=== PATIENT | female | born 1970 | race Caucasian/White ===

== ENCOUNTER → 2025-06-08 | Outpatient (CLI) | payer OTHER, SELFPAY ==
[2025-06-08 12:37] LABS: Hematocrit 34.9 % (37-47); Hemoglobin 10.2 g/dL (12.0-15.0); Immature Granulocytes Count 0.020 X10^3/uL (0.0-0.0); Mean Corp Hgb Conc 29.2 g/dL (32-36); Mean Corpuscular Volume 72.4 fL (81-99); Mean Platelet Vol. 10.4 fl (6.2-12.0); NRBC Flagged by Analyzer 0 % (0-5); Platelet Count 333 K/mm3 (150-450); RBC Distribution Width CV 17.5 % (11.6-14.6); RBC Distribution Width SD 45.5 fl (35.1-43.9); Red Blood Count 4.82 M/mm3 (4.2-5.4); White Blood Count 5.6 K/mm3 (4.4-11.0)
[2025-06-08 13:17] LABS: PTHIN 81 pg/mL (11-61)
[2025-06-08 13:19] LABS: Microalbumin,Random Urine < 12.0 mg/L (<20 mg/L)
[2025-06-08 13:28] LABS: FOLATES,SERUM (FOLIC ACID) 7.55 ng/mL (4.60-34.80)
[2025-06-08 13:41] LABS: AST(SGOT) 24 U/L (<=31); Alanine Aminotransfer ALT/SGPT 17 U/L (<=34); Albumin, Serum 4.2 g/dL (3.5-5.0); Alkaline Phosphatase 78 U/L (35-104); Anion Gap 9 (5-15); BUN 14 mg/dL (4-19); BUN/Creat Ratio 24.4 RATIO (10-20); Calcium 10.5 mg/dL (7.6-11.0); Calcium,Total 10.5 mg/dL (7.6-11.0); Carbon Dioxide 24.4 mmol/L (21.0-32.0); Chloride 106 mmol/L (98-108); Cholesterol 186 mg/dL (<=200); Ferritin 7 ng/mL (22-378); Globulin 2.6 g/dL (2.2-4.2); Glucose 78 mg/dL (70-99); Low Density Lipoprotein Calc. 78 mg/dL; Potassium 4.7 mmol/L (3.3-5.1); Triglycerides 148 mg/dL; Very Low Density Lipoprotein 30 mg/dL (5-40); Vitamin B12 474 pg/mL (180-914); Vitamin D,25 Hydroxy 37.8 ng/mL (30-100); cholesterol:hdl ratio screen 2.22
[2025-06-08 14:08] LABS: Iron 13 ug/dL (50-170); Iron Binding Capacity,Total 425 ug/dL (250-450); Iron Binding Capacity,Unsat 412 ug/dL (228-428)
[2025-06-12 19:07] LABS: Vitamin B1, Thiamine 101.2 nmol/L (66.5-200.0)
== END | disposition home or self-care (01) ==
LOC: VSLAB 08:57
PROVIDERS: Referring Provider Family Medicine; Visit Provider Family Medicine
DX: I10 Essential (primary) hypertension (principal); E55.9 Vitamin D deficiency, unspecified; E61.1 Iron deficiency; F32.9 Major depressive disorder, single episode, unspecified; Z98.84 Bariatric surgery status
CPT/HCPCS: 36415; 80053; 80061; 82043; 82306; 82310; 82607; 82728; 82746; 83036; 83540; 83550; 83970; 84425; 84443; 85025

== ENCOUNTER → 2025-06-12 | Outpatient (CLI) | payer OTHER, SELFPAY ==
[2025-06-12 10:45] LABS: Ionized Calcium Order ORDER TUBE
== END | disposition home or self-care (01) ==
LOC: MTLAB 09:42
PROVIDERS: PCP Family Medicine; Referring Provider Family Medicine; Visit Provider Family Medicine
DX: I10 Essential (primary) hypertension (principal); E55.9 Vitamin D deficiency, unspecified; E61.1 Iron deficiency; F32.9 Major depressive disorder, single episode, unspecified; Z98.84 Bariatric surgery status
CPT/HCPCS: 82330

== ENCOUNTER → 2025-07-05 | Outpatient (CLI) | payer OTHER, SELFPAY ==
[2025-07-05 12:38] LABS: Hematocrit 31.6 % (37-47); Hemoglobin 9.4 g/dL (12.0-15.0); Immature Granulocytes Count 0.020 X10^3/uL (0.0-0.0); Mean Corp Hgb Conc 29.7 g/dL (32-36); Mean Corpuscular Volume 70.7 fL (81-99); Mean Platelet Vol. 10.2 fl (6.2-12.0); NRBC Flagged by Analyzer 0 % (0-5); Platelet Count 326 K/mm3 (150-450); RBC Distribution Width CV 16.7 % (11.6-14.6); RBC Distribution Width SD 42.5 fl (35.1-43.9); Red Blood Count 4.47 M/mm3 (4.2-5.4); White Blood Count 6.7 K/mm3 (4.4-11.0)
== END | disposition home or self-care (01) ==
LOC: MTLAB 11:25
PROVIDERS: PCP Family Medicine; Referring Provider Family Medicine; Visit Provider Family Medicine
DX: E61.1 Iron deficiency (principal)
CPT/HCPCS: 36415; 85025

== ENCOUNTER → 2025-08-02 | Outpatient (CLI) | payer OTHER, SELFPAY ==
--- OUTSIDE RECORDS SUMMARY | 2025-08-02 12:29 | XMS RPT_ITS | CCD ---
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 [address] [place], [address] Globulin (S) [Mass/Vol] 2.6 g/dL Normal 2.2-4.2 [facility] Comment on above: Performed By: #### L 3100.3400, L3400.1750, L509.4015, L3100.0539 #### [facility] [address] [place], [address] Glucose [Mass/Vol] 78 mg/dL Normal 70-99 [facility] Comment on above: Performed By: #### L 3100.3400, L3400.1750, L509.4015, L3100.0539 #### [facility] [address] [place], [address] Potassium [Moles/Vol] 4.7 mmol/L Normal 3.3-5.1 [facility] Comment on above: Performed By: #### L 3100.3400, L3400.1750, L509.4015, L3100.0539 #### [facility] [address] [place], [address] Sodium [Moles/Vol] 140 mmol/L Normal 133-145 [facility] Comment on above: Performed By: #### L 3100.3400, L3400.1750, L509.4015, L3100.0539 #### [facility] [address] [place], [address] T PROT 6.8 g/dL Normal 5.9-8.4 [facility] Comment on above: Performed By: #### L 3100.3400, L3400.1750, L509.4015, L3100.0539 #### [facility] [address] [place], [address] Urea nitrogen [Mass/Vol] 14 mg/dL Normal 4-19 [facility] Comment on above: Performed By: #### L 3100.3400, L3400.1750, L509.4015, L3100.0539 #### [facility] [address] [place], [address] Ferritinon 06-08-2025 Ferritin [Mass/Vol] 7 ng/mL Low 22-378 [facility] Comment on above: Performed By: #### L 3100.3400, L3400.1750, L509.4015, L3100.0539 #### [facility] [address] [place], [address] Folates,Serum (Folic Acid)on 06-08-2025 FOLATES,SERUM 7.55 ng/mL Normal 4.60-34.80 [facility] Comment on above: Order Comment: N Performed By: #### L 3100.3400, L3400.1750, L509.4015, L3100.0539 #### [facility] [address] [place], [address] Hemoglobin A1con 06-08-2025 HbA1c (Bld) [Mass fraction] 5.3 % Normal <=5.6 [facility] Comment on above: Result Comment: Norm al < 5.7 % Prediabetic 5.7 - 6.4 % Diabetic >or= 6.5 % Please note range changes. Performed By: #### L 3300.8000, L501.9520, L501.0895, L500.4100, L503.0106, L501.9985, L503.6550, L500.4050, L502.0500, L506.0200, L509.1000, L506.1001, L503.6030, L100.0100 #### [facility] [address] [place], [address] Iron+Iron Binding Capacityon 06-08-2025 Iron [Mass/Vol] 13 ug/dL Low 50-170 [facility] Comment on above: Performed By: #### L 3100.3400, L3400.1750, L509.4015, L3100.0539 #### [facility] [address] [place], [address] IRON SATURATION 3.1 Low 13-59 [facility] Comment on above: Performed By: #### L 3100.3400, L3400.1750, L509.4015, L3100.0539 #### [facility] [address] [place], [address] TIBC 425 ug/dL Normal 250-450 [facility] Comment on above: Performed By: #### L 3100.3400, L3400.1750, L509.4015, L3100.0539 #### [facility] [address] [place], [address] UIBC 412 ug/dL Normal 228-428 [facility] Comment on above: Performed By: #### L 3100.3400, L3400.1750, L509.4015, L3100.0539 #### [facility] [address] [place], [address] Lipid Profileon 06-08-2025 CHOL:HDL 2.22 Normal [facility] Comment on above: Performed By: #### L 3100.3400, L3400.1750, L509.4015, L3100.0539 #### [facility] [address] [place], [address] Cholesterol [Mass/Vol] 186 mg/dL Normal <=200 [facility] Comment on above: Result Comment: Chol esterol level, Desirable <200 mg/dL Borderline high cholesterol 200-239 mg/dL High cholesterol >=240 mg/dL Recommendations of the NCEP Adult Treatment Panel for the following risk-cutoff thresholds for the [place] population. Performed By: #### L 3100.3400, L3400.1750, L509.4015, L3100.0539 #### [facility] [address] [place], [address] Cholesterol in HDL [Mass/Vol] 84 mg/dL Normal [facility] Comment on above: Result Comment: Magdalena onal Cholesterol Education Program (NCEP) guidelines: <40 mg/dL: Low HDL-cholesterol (major risk factor for CHD) >= 60 mg/dL: High HDL-cholesterol (negative risk factor for CHD) HDL-cholesterol is affected by a number of factors, e.g. smoking, exercise, hormones, sex and age. Performed By: #### L 3100.3400, L3400.1750, L509.4015, L3100.0539 #### [facility] [address] [place], [address] Cholesterol in LDL [Mass/Vol] 78 mg/dL Normal [facility] Comment on above: Result Comment: Bord fcshth=917-395 mg/dL Higher Lebx=423 mg/dL or greater Nicolas Equation 2020 for LDL-C Performed By: #### L 3100.3400, L3400.1750, L509.4015, L3100.0539 #### [facility] [address] [place], [address] Cholesterol in VLDL [Mass/Vol] 30 mg/dL Normal 5-40 [facility] Comment on above: Performed By: #### L 3100.3400, L3400.1750, L509.4015, L3100.0539 #### [facility] [address] [place], [address] Triglyceride [Mass/Vol] 148 mg/dL Normal [facility] Comment on above: Result Comment: The drugs N-Acetylcysteine and Metamizole may falsely depress this assay. Normal range: <150 mg/dL Borderline High: 150-199 mg/dL High: 200-499 mg/dL Very High: >500 mg/dL Performed By: #### L 3100.3400, L3400.1750, L509.4015, L3100.0539 #### [facility] [address] [place], [address] Microalbumin,Random Urineon 06-08-2025 MICROALBUMIN,UR < 12.0 Normal <20 mg/L [facility] Comment on above: Performed By: #### L 3300.8000, L501.9520, L501.0895, L500.4100, L503.0106, L501.9985, L503.6550, L500.4050, L502.0500, L506.0200, L509.1000, L506.1001, L503.6030, L100.0100 #### [facility] [address] [place], [address] PTHINon 06-08-2025 PTH 81 pg/mL High [facility] Comment on above: Performed By: #### L 3300.8000, L501.9520, L501.0895, L500.4100, L503.0106, L501.9985, L503.6550, L500.4050, L502.0500, L506.0200, L509.1000, L506.1001, L503.6030, L100.0100 #### [facility] [address] [place], [address] Thyroid Stim Hormone (TSH)on 06-08-2025 TSH 1.250 uIU/mL Normal 0.300-4.200 [facility] Comment on above: Performed By: #### L 3100.3400, L3400.1750, L509.4015, L3100.0539 #### [facility] [address] [place], [address] Vitamin B12on 06-08-2025 Cobalamin (Vitamin B12) [Mass/Vol] 474 pg/mL Normal 180-914 [facility] Comment on above: Performed By: #### L 3100.3400, L3400.1750, L509.4015, L3100.0539 #### [facility] [address] [place], [address] Vitamin D,25 Hydroxyon 06-08 Vitamin D 25-OH 37.8 ng/mL Normal 30-100 [facility] Comment on above: Result Comment: Milka min D Status Deficiency: <20 ng/mL (50nmol/L) Insufficiency: 20-30 ng/mL (50-75 nmol/L) Sufficiency: 30-100 ng/mL (75-250 nmol/L) Toxicity: >100 ng/mL (>250 nmol/L) Performed By: #### L 3100.3400, L3400.1750, L509.4015, L3100.0539 #### [facility] [address] [place], [place], [address] Urgent Care Visit Reporton 0 01-06-2025 Urgent Care Visit Report [facility] [address], [address] [place], [place] [address] OFFICE VISIT Date of Service: 01/06/25 MR#: [id number] Acct: [id number] Name: CAROLE GUADARRAMA Rep #: [id number] : 1970 Provider: BRIAN Jackson Age/Sex: 54/F Location: [facility] Status: Signed Intake Vital Signs 01/06/25 12:20 Height 5 ft 6 in Weight: 153 lb 9 oz BMI 24.7 BP 140/86 H Blood Pressure Location Lt brachial Position Sitting Respiration 16 Pulse 73 Pulse Source NIBP Temp 98.5 F Temp Source Oral Pulse Oximetry (%) 98 Oxygen Delivery Method room air Intake Visit Reasons: Rash Chief Complaint: rash Children Teacher Required: No Is patient in pain?: Yes Allergies meperidine (From Demerol) Allergy (Mild, Verified 01/06/25 12:20) Hives Medications ???Medication ???Instructions ???Recorded ???Confirmed ???Type amlodipine 5 mg tablet 5 mg PO QDAY 01/06/25 01/06/25 His tory clotrimazole-betamethasone 1 1 applic topical Q12H 2 weeks #45 01/06/25 01/06/25 Rx %-0.05 % topical cream grams prednisone 10 mg tablet 10 mg PO DIRECTED 12 days #30 0 01/06/25 01/06/25 Rx tabs sertraline 100 mg tablet 100 mg PO QDAY 01/06/25 01/06/25 H istory sulfamethoxazole 800 1 tab PO Q12H 7 days #14 tabs 01/2501/06/25 Rx mg-trimethoprim 160 mg tablet (Bactrim DS) trazodone 50 mg tablet 50 mg PO QHS 01/06/25 01/06/25 His tory Is last menstrual period known: No Post menopausal: Yes Patient : No Have you fallen in the past year?: No Nurse's Note: rash to bilateral hands LT>RT, right arm, left breast. denies drainage, fever, itching. +burning sensation which is worsening. x 10 days. has tried NUMEROUS otc meds without relief. HPI HPI Chief Complaint: rash Details: CAROLE GUADARRAMA, is a 54 F who presents to the office today for rash to the hands bilaterally worse on the left than the right. Patient states that she was gardening and then the next day started having a rash. She has tried multiple bbmq-oml-pjgevxb medications including antifungal creams as well as ointments with no relief. She states that it does itch somewhat however not incessantly. No numbness, tingling or loss of range of motion to the hand or fingers. No other associated symptoms or alleviating/aggravating factors. ROS Const Constitutional: No other (6 system ROS completed with pertinent findings in the HPI otherwise normal.) Exam Const General: cooperative and healthy appearing Resp Effort Inspection: normal respiratory effort Auscultation: Bilateral: Clear to Auscultation Cardio Rate: regular rate Skin Other: Erythematous circular lesions to the left and right hands worse on the left. Neuro General: patient alert Psych Appearance: grossly normal Mental Status: mental status grossly normal Coding Level of Care Code Off vis,new,level 3 Diagnoses Rash R21 Staph skin infection L08.9; B95.8 Assessment and Plan Assessment and Plan (1) Rash: (2) Staph skin infection: Status: Acute Medications: New sulfamethoxazole-trimethoprim 800-160 mg (Bactrim DS) 1 TAB PO Q12H 14 tabs 0RF 7 days prednisone Take 4 tabs once daily days 1-3 3 tabs once daily days 4-6 2 tabs once daily days 7-9 and 1 tab once daily days 10-12. 10 mg PO DIRECTED 30 tabs 0RF 12 days L25.9 - Unspecified contact dermatitis, unspecified cause clotrimazole-betamethasone 1-0.05 % 1 applic topical Q12H 45 grams 0RF 2 weeks Plan Bactrim, prednisone and Lotrisone as prescribed today. Encouraged to get plenty of rest, drink lots of clear liquids, and use Tylenol or Ibuprofen (unless contraindicated) for fever and comfort. Patient also educated on other symptomatic management techniques. To be seen in 7-10 days by dermatology if no improvement; sooner if worsening of symptoms. Patient advised of potential red flags and when appropriate to report to the ED. Patient verbalized understanding and agreement with all the above. Clinical Quality Measures Falls Risk Screening/Assistive Devices Have you fallen in the past year?: No 01/06/25 7089 Date Brodie Cooper Signature: Date (if applicable) CC: Normal [facility] Mumps Antibody,IgGon 025 MUMPS Ab, IgG 11.2 AU/mL Normal Immune >10.9 [facility] Comment on above: Result Comment: Nega tive <9.0 Equivocal 9.0 - 10.9 Positive >10.9 A positive result generally indicates past exposure to Mumps virus or previous vaccination. Performed By: #### L 3100.3400, L3400.1750, L509.4015, L3100.0539 #### [facility] [address] [place], [place], [address] [facility] EMP Rubeola Titeron 08-03 RUBEOLA Ab, IgG 283.0 AU/mL Normal Immune >16.4 [facility] Comment on above: Result Comment: Nega tive <13.5 Equivocal 13.5 - 16.4 Positive >16.4 Presence of antibodies to Rubeola is presumptive evidence of immunity except when acute infection is suspected. Performed at: [address] [id number] [facility] Coordinator: Alexandro Mary PhD, Phone: [phone] Performed By: #### L 3100.3400, L3400.1750, L509.4015, L3100.0539 #### [facility] [address] [place], [address] Hepatitis B Surf AB - EMPon 08-16-2024 HEP B Surf Ab Non-Reactive Normal [facility] Comment on above: Result Comment: Non Reactive: Inconsistent with immunity less than <10 mIU/mL Reactive: Consistent with immunity greater than or equal to 10 mIU/mL Performed By: #### L 3100.3400, L3400.1750, L509.4015, L3100.0539 #### [facility] [address] [place], [place], [address] Rubella IgG [facility] EMPLOYEEon 0 08-16-2024 Rubella IgG Reactive Normal Nonreactive [facility] Comment on above: Result Comment: Anti body Results Interpretation of Immune Status Non Reactive Presumed Non-Immune Equivocal Equivocal Reactive Presumed Immune Performed By: #### L 3100.3400, L3400.1750, L509.4015, L3100.0539 #### [facility] [address] [place], [address] CBC AND DIFFERENTIALon 05-02 % AUTOMATED IMMATURE GRAN Canceled Normal [facility] Comment on above: Order Comment: TEST CBC AND DIFFERENTIAL WAS CANCELLED, 05/01/2023 23:54 NO SPECIMEN RECEIVED IN LAB. Result Comment: Velvet ture Granulocyte Count (IG) includes promyelocytes, myelocytes and metamyelocytes but does not include bands. Percent differential counts (%) should be interpreted in the context of the absolute cell counts (cells/L). Performed By: #### C BCDF #### [address] [address] % BASOPHIL Canceled [facility] Comment on above: Order Comment: TEST CBC AND DIFFERENTIAL WAS CANCELLED, 05/01/2023 23:54 NO SPECIMEN RECEIVED IN LAB. Performed By: #### C BCDF #### [address] [address] % EOSINOPHIL Canceled [facility] Comment on above: Order Comment: TEST CBC AND DIFFERENTIAL WAS CANCELLED, 05/01/2023 23:54 NO SPECIMEN RECEIVED IN LAB. Performed By: #### C BCDF #### [address] [address] % LYMPHOCYTE Canceled [facility] Comment on above: Order Comment: TEST CBC AND DIFFERENTIAL WAS CANCELLED, 05/01/2023 23:54 NO SPECIMEN RECEIVED IN LAB. Performed By: #### C BCDF #### [address] [address] % MONOCYTE Canc[facility] Comment on above: Order Comment: TEST CBC AND DIFFERENTIAL WAS CANCELLED, 05/01/2023 23:54 NO SPECIMEN RECEIVED IN LAB. Performed By: #### C BCDF #### [address] [address] % NEUTROPHIL Canceled [facility] Comment on above: Order Comment: TEST CBC AND DIFFERENTIAL WAS CANCELLED, 05/01/2023 23:54 NO SPECIMEN RECEIVED IN LAB. Performed By: #### C BCDF #### [place] [address] BASOPHIL Canceled [facility] Comment on above: Order Comment: TEST CBC AND DIFFERENTIAL WAS CANCELLED, 05/01/2023 23:54 NO SPECIMEN RECEIVED IN LAB. Performed By: #### C BCDF #### [place] [address] DIFFERENTIAL Canceled [facility] Comment on above: Order Comment: TEST CBC AND DIFFERENTIAL WAS CANCELLED, 05/01/2023 23:54 NO SPECIMEN RECEIVED IN LAB. Performed By: #### C BCDF #### [place] [address] EOSINOPHIL Canceled [facility] Comment on above: Order Comment: TEST CBC AND DIFFERENTIAL WAS CANCELLED, 05/01/2023 23:54 NO SPECIMEN RECEIVED IN LAB. Performed By: #### C BCDF #### [place] [address] HCT Canceled [facility] Comment on above: Order Comment: TEST CBC AND DIFFERENTIAL WAS CANCELLED, 05/01/2023 23:54 NO SPECIMEN RECEIVED IN LAB. Performed By: #### C BCDF #### [place] [address] HGB Canceled [facility] Comment on above: Order Comment: TEST CBC AND DIFFERENTIAL WAS CANCELLED, 05/01/2023 23:54 NO SPECIMEN RECEIVED IN LAB. Performed By: #### C BCDF #### [place] [address] LYMPHOCYTE Canceled [facility] Comment on above: Order Comment: TEST CBC AND DIFFERENTIAL WAS CANCELLED, 05/01/2023 23:54 NO SPECIMEN RECEIVED IN LAB. Performed By: #### C BCDF #### [place] [address] MCHC Canceled [facility] Comment on above: Order Comment: TEST CBC AND DIFFERENTIAL WAS CANCELLED, 05/01/2023 23:54 NO SPECIMEN RECEIVED IN LAB. Performed By: #### C BCDF #### [address] [address] MCV Canceled [facility] Comment on above: Order Comment: TEST CBC AND DIFFERENTIAL WAS CANCELLED, 05/01/2023 23:54 NO SPECIMEN RECEIVED IN LAB. Performed By: #### C BCDF #### [address] [address] MONOCYTE Canceled [facility] Comment on above: Order Comment: TEST CBC AND DIFFERENTIAL WAS CANCELLED, 05/01/2023 23:54 NO SPECIMEN RECEIVED IN LAB. Performed By: #### C BCDF #### [place] [id number] NEUTROPHIL Canceled [facility] Comment on above: Order Comment: TEST CBC AND DIFFERENTIAL WAS CANCELLED, 05/01/2023 23:54 NO SPECIMEN RECEIVED IN LAB. Result Comment: Perc ent differential counts (%) should be interpreted in the context of the absolute cell counts (cells/L). Performed By: #### C BCDF #### [place] [id number] PLT Canceled [facility] Comment on above: Order Comment: TEST CBC AND DIFFERENTIAL WAS CANCELLED, 05/01/2023 23:54 NO SPECIMEN RECEIVED IN LAB. Performed By: #### C BCDF #### [place] [id number] RBC Canceled [facility] Comment on above: Order Comment: TEST CBC AND DIFFERENTIAL WAS CANCELLED, 05/01/2023 23:54 NO SPECIMEN RECEIVED IN LAB. Performed By: #### C BCDF #### [place] [address] RDW-CV Canceled [facility] Comment on above: Order Comment: TEST CBC AND DIFFERENTIAL WAS CANCELLED, 05/01/2023 23:54 NO SPECIMEN RECEIVED IN LAB. Performed By: #### C BCDF #### [place] [id number] WBC Canceled [facility] Comment on above: Order Comment: TEST CBC AND DIFFERENTIAL WAS CANCELLED, 05/01/2023 23:54 NO SPECIMEN RECEIVED IN LAB. Performed By: #### C BCDF #### [place] [address] FERRITINon 05-02-2023 FERRITIN Canceled [facility] Comment on above: Order Comment: TEST FERRITIN WAS CANCELLED, 05/01/2023 23:54 NO SPECIMEN RECEIVED IN LAB. Performed By: #### F ERRI #### [place] [address] IRON + TIBCon 05-02-2023 % SATURATION Canceled [facility] Comment on above: Order Comment: TEST IRON + TIBC WAS CANCELLED, 05/01/2023 23:54 NO SPECIMEN RECEIVED IN LAB. Performed By: #### I RONT #### [place] [address] IRON Canceled [facility] Comment on above: Order Comment: TEST IRON + TIBC WAS CANCELLED, 05/01/2023 23:54 NO SPECIMEN RECEIVED IN LAB. Performed By: #### I RONT #### [place] [address] TIBC Canceled [facility] Comment on above: Order Comment: TEST IRON + TIBC WAS CANCELLED, 05/01/2023 23:54 NO SPECIMEN RECEIVED IN LAB. Performed By: #### I RONT #### [place] [address] CBC AND DIFFERENTIALon 05-01 Lab Specimen Source [facility] Comment on above: Order Comment: TEST CBC AND DIFFERENTIAL WAS CANCELLED, 05/01/2023 23:54 NO SPECIMEN RECEIVED IN LAB. Performed By: #### C BCDF #### [place] [address] Order Comment: TEST FERRITIN WAS CANCELLED, 05/01/2023 23:54 NO SPECIMEN RECEIVED IN LAB. Performed By: #### F ERRI #### [place] [address] Order Comment: TEST IRON + TIBC WAS CANCELLED, 05/01/2023 23:54 NO SPECIMEN RECEIVED IN LAB. Performed By: #### I STANISLAW #### [place] [address] [place] [address] FOOT COMPLETE, MIN 3 VIEWSon 11-28-2022 FOOT COMPLETE, MIN 3 VIEWS Patient Name: CAROLE GUADARRAMA STUDY: FOOT; COMPLETE, MIN 3 VIEWS INDICATION: plantar fascial fibromatosis. COMPARISON: None ACCESSION NUMBER(S): [id number] ORDERING CLINICIAN: WIL MCNAIR FINDINGS: Moderate midfoot arthrosis with pes planus. Large plantar calcaneal spur. No evidence of left foot fracture. IMPRESSION: Moderate midfoot arthrosis with pes planus. Large plantar calcaneal spur. Electronically signed by: SAMUEL CERON MD [facility] [place] [facility] [place]o [place] 09-03-2022 Noninvasive colorectal cancer DNA and occult blood screening Theo (Stl) [Interp] Negative Negative [facility] Work Phone: Comment on above: [employer] (CLIA #:[id number])[address] [place] [address] [facility] Medical DirectorNEGATIVE TEST RESULT. A negative Cologuard result indicates a low likelihood that a colorectal cancer (CRC) or advanced adenoma (adenomatous polyps with more advanced pre-malignant features) is present. The chance that a person with a negative Cologuard test has a colorectal cancer is less than 1 in 1500 (negative predictive value >99.9%) or has an advanced adenoma is less than 5.3% (negative predictive value 94.7%). These data are based on a prospective cross-sectional study of 10,000 individuals at average risk for colorectal cancer who were screened with both Cologuard and colonoscopy. (Gertrudis Butcher al, N Engl J Med 2014;370(14):6772-2047) The normal value (reference range) for this assay is negative.COLOGUARD RE-SCREENING RECOMMENDATION: Periodic colorectal cancer screening is an important part of preventive healthcare for asymptomatic individuals at average risk for colorectal cancer. Following a negative Cologuard result, the [place] [employer] and U.S. Multi-Society Task Force screening guidelines recommend a Cologuard re-screening interval of 3 years. References: [place] [employer] Guideline for Colorectal Cancer Screening: https://www.cancer.org/cancer/pbecq-mwmojd-woslft/detection-diagnosi s-staging/acs-recommendations.html.; Devang KING, Cheng KATZ, Patria ToneyK, Colorectal Cancer Screening: Recommendations for Physicians and Patients from the U.S. Multi-Society Task Force on Colorectal Cancer Screening , Am J Gastroenterology 2017; 112:4245-0141.TEST DESCRIPTION: Composite algorithmic analysis of stool DNA-biomarkers with hemoglobin immunoassay. Quantitative values of individual biomarkers are not reportable and are not associated with individual biomarker result reference ranges. Cologuard is intended for colorectal cancer screening of adults of either sex, 45 years or older, who are at average-risk for colorectal cancer (CRC). Cologuard has been approved for use by the U.S. FDA. The performance of Cologuard was established in a cross sectional study of average-risk adults aged 50-84. Cologuard performance in patients ages 45 to 49 years was estimated by sub-group analysis of near-age groups. Colonoscopies performed for a positive result may find as the most clinically significant lesion: colorectal cancer [4.0%], advanced adenoma (including sessile serrated polyps greater than or equal to 1cm diameter) [20%] or non- advanced adenoma [31%]; or no colorectal neoplasia [45%]. These estimates are derived from a prospective cross-sectional screening study of 10,000 individuals at average risk for colorectal cancer who were screened with both Cologuard and colonoscopy. (Gertrudis Tracy et al, N Engl J Med 2014;370(14):3388-1770.) Cologuard may produce a false negative or false positive result (no colorectal cancer or precancerous polyp present at colonoscopy follow up). A negative Cologuard test result does not guarantee the absence of CRC or advanced adenoma (pre-cancer). The current Cologuard screening interval is every 3 years. ([place] [employer] and U.S. Multi-Society Task Force). Cologuard performance data in a 10,000 patient pivotal study using colonoscopy as the reference method can be accessed at the following location: www.[employer]/results. Additional description of the Cologuard test process, warnings and precautions can be found at www.cologuard.com. Tobacco Screening.on 023 Fall risk assessment a) No falls within the last year [facility] Work Phone: Tobacco use status [facility] b) No [facility] Work Phone: Tobacco Screening. Adult [facility] Work Phone: CT Abdomen and Pelvis with I V Contraston 07-30-2022 CT Abdomen and Pelvis W contrast IV Normal [facility] Work Phone: COMPREHENSIVE PANELon 2021 Albumin [Mass/Vol] 4.0 g/dL Normal 3.4 - 5.0 [facility] Comment on above: Performed By: #### C MP #### [address] [address] ALP [Catalytic activity/Vol] 72 U/L Normal 33 - 110 [facility] Comment on above: Performed By: #### C MP #### [address] [address] ALT [Catalytic activity/Vol] 11 U/L Normal 7 - 45 [facility] Comment on above: Result Comment: Keoyna ents treated with Sulfasalazine may generate falsely decreased results for ALT. Performed By: #### C MP #### [address] [address] Anion gap [Moles/Vol] 10 mmol/L Normal 10 - 20 [facility] Comment on above: Performed By: #### C MP #### [address] [address] AST [Catalytic activity/Vol] 15 U/L Normal 9 - 39 [facility] Comment on above: Performed By: #### C MP #### [address] [address] Bilirubin [Mass/Vol] 0.3 mg/dL Normal 0.0 - 1.2 [facility] Comment on above: Performed By: #### C MP #### [address] [address] Calcium [Mass/Vol] 10.5 mg/dL High 8.6 - 10.3 [facility] Comment on above: Performed By: #### C MP #### [address] [address] Chloride [Moles/Vol] 108 mmol/L High 98 - 107 [facility] Comment on above: Performed By: #### C MP #### [address] [address] Creatinine [Mass/Vol] 0.70 mg/dL Normal 0.50 - 1.05 [facility] Comment on above: Performed By: #### C MP #### [address] [address] eGFR FEMALE >90 Normal >90 [facility] Comment on above: Result Comment: CALC ULATIONS OF ESTIMATED GFR ARE PERFORMED USING THE 2020 CKD-EPI STUDY REFIT EQUATION WITHOUT THE RACE VARIABLE FOR THE IDMS-TRACEABLE CREATININE METHODS. https://jasn.asnjournals.org/content/early/ASN.5765833778 Performed By: #### C MP #### [address] [address] Glucose [Mass/Vol] 105 mg/dL High 74 - 99 [facility] Comment on above: Performed By: #### C MP #### [address] [address] HCO3 (Bld) [Moles/Vol] 28 mmol/L Normal 21 - 32 [facility] Comment on above: Performed By: #### C MP #### [address] [address] Potassium [Moles/Vol] 4.5 mmol/L Normal 3.5 - 5.3 [facility] Comment on above: Performed By: #### C MP #### [address] [address] Protein [Mass/Vol] 6.7 g/dL Normal 6.4 - 8.2 [facility] Comment on above: Performed By: #### C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 TECHNIQUE: Mammography: CC and MLO 2D digital mammograms and digital breast tomosynthesis images were obtained of the left breast. 3-D volume images were reconstructed in 2 views at an independent workstation as 1 mm slices through the breasts in both the CC and MLO projections. Ultrasound: Multiple grayscale ultrasonographic images were obtained through the left breast in the region of mammographic abnormality. FINDINGS: Mammography: There are areas of scattered fibroglandular tissue. There is a persistent focal asymmetry identified inches the 11 o'clock position of the left breast. A biopsy clip is seen in association with this asymmetry. A small focus of architectural distortion is seen in the anterior aspect of this asymmetry. No additional mass or focal asymmetry is identified. No suspicious microcalcifications or foci of architectural distortion are seen. Further evaluation with ultrasound was obtained. This study was interpreted with CAD. Ultrasound: No discrete mass or ultrasonographic abnormality is seen in the region of mammographic abnormality. IMPRESSION: Mammographic asymmetry without sonographic correlate, as described above. Recommendation is for follow-up examination in 6 months with bilateral diagnostic mammograms. BI-RADS CATEGORY: Category: 3 - Probably Benign; Short Interval Follow-up. Exam Date/Time: 06/30/2018 08:57 EST Report Recommendation: Short Interval Follow-up. Recall Interval: 6 Months. Breast Density: Scattered Fibroglandular Density. Negative or benign mammogram and ultrasound should not preclude further evaluation of a suspicious clinical abnormality. FINAL REPORT Dictated: 06/30/2018 11:00 am Gilmar Alcaraz MD Signed (Electronic Signature): 06/30/2018 11:00 am Signed by: Gilmar Alcaraz MD Technologist: JIGAR Assessment: BI-RADS Category 3-Probably benign - short interval follow-up Recommendation: Follow-up at short interval Normal [facility] US PELVIS NON-OB COMPLETEon 03-25-2017 US PELVIS NON-OB COMPLETE Performed at [facility] APPROVED BY: Terry Molina MD EXAM TITLE: PELVIC ULTRASOUND WITH TRANSABDOMINAL AND TRANSVAGINAL IMAGING. DATE: 03/25/2017 09:53 COMPARISON: CT of the abdomen and pelvis dated 03/14/2009 CLINICAL INDICATION/HISTORY: The patient has menorrhagia. TECHNIQUE: Both transabdominal and transvaginal imaging of the pelvis were performed. FINDINGS: The uterus measures 7.6 x 3.3 x 5.2 cm. There is a thin echogenic endometrial stripe measuring 5 mm in thickness. No focal uterine abnormalities are identified. The right ovary measures 5.0 x 2.6 x 2.8 cm.The left ovary measures 7.0 x 3.7 x 4.7 cm.Within both ovaries there are multiple prominent anechoic structures. The largest on the right measures 3.7 x 2.0 x 2.4 cm. There also appears to be multiple small follicles on the right. There are several large cysts on the left. The largest measures 5.0 x 2.3 x 3.0 cm. Another measures 3.0 x 2.6 cm and a third measures 2.8 x 1.8 cm. No other focal ovarian abnormalities are noted. Doppler analysis demonstrates normal flow to both ovaries. There is no evidence of torsion. The right kidney measures greater than or equal to 10.1 x 6.1 x 5.1 cm.The left kidney measures greater than or equal to 10.5 x 5.1 x 4.7 cm.No hydronephrosis noted. Bladder is of normal size and configuration. There is a trace amount of free fluid which is most likely physiologic. IMPRESSION: 1. There are multiple prominent simple appearing cysts within the cortex of both ovaries. These are larger and more numerous on the left than on the right. 2. Otherwise negative pelvic ultrasound. Normal [facility] US TRANSVAGINALon 03-25-2017 US TRANSVAGINAL Performed at [facility] APPROVED BY: Terry Molina MD EXAM TITLE: PELVIC ULTRASOUND WITH TRANSABDOMINAL AND TRANSVAGINAL IMAGING. DATE: 03/25/2017 09:53 COMPARISON: CT of the abdomen and pelvis dated 03/14/2009 CLINICAL INDICATION/HISTORY: The patient has menorrhagia. TECHNIQUE: Both transabdominal and transvaginal imaging of the pelvis were performed. FINDINGS: The uterus measures 7.6 x 3.3 x 5.2 cm. There is a thin echogenic endometrial stripe measuring 5 mm in thickness. No focal uterine abnormalities are identified. The right ovary measures 5.0 x 2.6 x 2.8 cm.The left ovary measures 7.0 x 3.7 x 4.7 cm.Within both ovaries there are multiple prominent anechoic structures. The largest on the right measures 3.7 x 2.0 x 2.4 cm. There also appears to be multiple small follicles on the right. There are several large cysts on the left. The largest measures 5.0 x 2.3 x 3.0 cm. Another measures 3.0 x 2.6 cm and a third measures 2.8 x 1.8 cm. No other focal ovarian abnormalities are noted. Doppler analysis demonstrates normal flow to both ovaries. There is no evidence of torsion. The right kidney measures greater than or equal to 10.1 x 6.1 x 5.1 cm.The left kidney measures greater than or equal to 10.5 x 5.1 x 4.7 cm.No hydronephrosis noted. Bladder is of normal size and configuration. There is a trace amount of free fluid which is most likely physiologic. IMPRESSION: 1. There are multiple prominent simple appearing cysts within the cortex of both ovaries. These are larger and more numerous on the left than on the right. 2. Otherwise negative pelvic ultrasound. Normal [facility] Hemogramon 03-16-2017 Erythrocyte distribution width Auto Ratio (RBC) 12.9 % Normal 11.5-15.9 [facility] Comment on above: Performed By: #### L CBC ####[address] [address] Erythrocytes (RBC) 5.06 mil/cmm Normal 4.20-5.40 [facility] Comment on above: Performed By: #### L CBC ####[address] [address] Hematocrit (HCT) 42.5 % Normal 37.0-47.0 [facility] Comment on above: Performed By: #### L CBC ####[address] [address] Hemoglobin mass conc (Bld) 14.0 g/dL Normal 12.0-16.0 [facility] Comment on above: Performed By: #### L CBC ####[address] [address] MCH 27.7 pg Normal 27.0-31.0 [facility] Comment on above: Performed By: #### L CBC ####[facility] [place], [place] [address] MCHC mass conc (RBC) 32.9 % Normal 32.0-36.0 [facility] Comment on above: Performed By: #### L CBC ####[facility] [place], [place] [address] MCV 84.0 fL Normal 81.0-99.0 [facility] Comment on above: Performed By: #### L CBC ####[facility] [place], [place] [address] Platelet mean volume (PMV) 10.0 fL Normal 7.1-10.5 [facility] Comment on above: Performed By: #### L CBC ####[address] [address] Platelets 395 thou/cmm Normal 150-400 [facility] Comment on above: Performed By: #### L CBC ####[place] [address] WBC (Leukocytes) 8.0 thou/cmm Normal 4.8-10.8 [facility] Comment on above: Performed By: #### L CBC ####[place] [address] Pap,Cyto Gynon 03-16-2017 Pap,Cyto Radiologic Technologist Test performed at [place] [address]NAME: CAROLE GUADARRAMA [phone] REQUESTING: CRYSTAL GARCIA, MDSPECIMEN: TP CX REFLEX TO HPV ASCUS/SILRelevant History:LMP: 03/08/2017 Abnormal bleeding: YES,SPECIMEN ADEQUACYSATISFACTORY FOR EVALUATION. ENDOCERVICAL/TRANSFORMATION ZONECOMPONENTS PRESENT.GENERAL CATEGORIZATIONNEGATIVE FOR INTRAEPITHELIAL LESION OR MALIGNANCY.INTERPRETATION/RESU LTFUNGAL ORGANISMS MORPHOLOGICALLY CONSISTENT WITH NATHAN SPECIES.Electronically signed: 03/19/2017Screened by: XIOMY MARTIN CT(ASCP)Signed Out by: KULWANT A. DON, CT(ASCP)The Pap test serves as a screening tool for early detection of cervical cancer. The Pap test does not represent a final diagnostic test forcervical cancer. Furthermore, the Pap test was not designed to screenfor other malignancies (endometrial, ovarian cancer, etc....). Falsenegatives and false positives have occurred. If clinically indicated,further patient evaluation is recommended.Printed on: March 19, 2017 [address] [facility] Comment on above: Performed By: #### C YTOP ####[address] [address] Vital Signs Date Time Vital Sign Value Performing Clinician Facility 01-06-2025 12:20-0400 Body height 167.64 cm Brodierl Phan PA Work Phone: [facility] 01-06-2025 12:20-0400 Body mass index (BMI) [Ratio] 24.7 kg/m2 Brodierl Phan PA Work Phone: [facility] 01-06-2025 12:20-0400 Body temperature 98.5 [degF] Brodie Sylvester PA Work Phone: [facility] 01-06-2025 12:20-0400 Body weight 69.65 kg Brodie Sylvester PA Work Phone: [facility] 01-06-2025 12:20-0400 Diastolic blood pressure 86 mm[Hg] Brodie Sylvester PA Work Phone: [facility] 01-06-2025 12:20-0400 Heart rate 73 /min Brodie Sylvester PA Work Phone: [facility] 01-06-2025 12:20-0400 Respiratory rate 16 /min Brodie Sylvester PA Work Phone: [facility] 01-06-2025 12:20-0400 SaO2% (BldA) [Mass fraction] 98 % Brodie Sylvester PA Work Phone: [facility] 01-06-2025 12:20-0400 Systolic blood pressure 140 mm[Hg] Brodierl Phan PA Work Phone: [facility] 08-05-2022 08:22-0500 Body height 164.62 cm Melisa L Oberhauser Work Phone: [facility] Work Phone: 08-05-2022 08:22-0500 Body mass index (BMI) [Ratio] 27.79 kg/m2 Melisa L Oberhauser Work Phone: [facility] Work Phone: 08-05-2022 08:22-0500 Body surface area Derived from formula 1.82 m2 Melisa L Oberhauser Work Phone: [facility] Work Phone: 08-05-2022 08:22-0500 Body weight 75.3 kg Melisa L Oberhauser Work Phone: [facility] Work Phone: 08-05-2022 08:22-0500 Diastolic blood pressure 82 mm[Hg] Melisa L Oberhauser Work Phone: [facility] Work Phone: 08-05-2022 08:22-0500 Heart rate 77 /min Melisa L Oberhauser Work Phone: [facility] Work Phone: 08-05-2022 08:22-0500 Systolic blood pressure 145 mm[Hg] Melisa L Oberhauser Work Phone: [facility] Work Phone: 04-23-2022 12:47-0400 Body height 164.62 cm Melisa L Oberhauser Work Phone: [facility] Work Phone: 04-23-2022 12:47-0400 Body mass index (BMI) [Ratio] 27.77 kg/m2 Melisa L Oberhauser Work Phone: [facility] Work Phone: 04-23-2022 12:47-0400 Body surface area Derived from formula 1.82 m2 Melisa L Oberhauser Work Phone: [facility] Work Phone: 04-23-2022 12:47-0400 Body temperature 208.04 [degF] Melisa L Oberhauser Work Phone: [facility] Work Phone: 04-23-2022 12:47-0400 Body weight 75.25 kg Melisa L Oberhauser Work Phone: [facility] Work Phone: 04-23-2022 12:47-0400 Diastolic blood pressure 84 mm[Hg] Melisa L Oberhauser Work Phone: [facility] Work Phone: 04-23-2022 12:47-0400 Heart rate 76 /min Melisa L Oberhauser Work Phone: [facility] Work Phone: 04-23-2022 12:47-0400 Systolic blood pressure 157 mm[Hg] Melisa L Oberhauser Work Phone: [facility] Work Phone: 02-04-2022 08:24-0400 Body height 164.11 cm Melisa L Oberhauser Work Phone: [facility] Work Phone: 02-04-2022 08:24-0400 Body mass index (BMI) [Ratio] 27.79 kg/m2 Melisa L Oberhauser Work Phone: [facility] Work Phone: 02-04-2022 08:24-0400 Body surface area Derived from formula 1.81 m2 Melisa L Oberhauser Work Phone: [facility] Work Phone: 02-04-2022 08:24-0400 Body weight 74.84 kg Melisa L Oberhauser Work Phone: [facility] Work Phone: 02-04-2022 08:24-0400 Diastolic blood pressure 83 mm[Hg] Melisa L Oberhauser Work Phone: [facility] Work Phone: 02-04-2022 08:24-0400 Heart rate 70 /min Melisa L Oberhauser Work Phone: [facility] Work Phone: 02-04-2022 08:24-0400 Systolic blood pressure 143 mm[Hg] Melisa L Oberhauser Work Phone: [facility] Work Phone: 11-12-2021 09:02-0400 Body height 164.11 cm Melisa L Oberhauser Work Phone: [facility] [place] Work Phone: 11-12-2021 09:02-0400 Body mass index (BMI) [Ratio] 28.14 kg/m2 Melisa L Oberhauser Work Phone: [facility] [place] Work Phone: 11-12-2021 09:02-0400 Body surface area Derived from formula 1.82 m2 Melisa L Oberhauser Work Phone: [facility] [place] Work Phone: 11-12-2021 09:02-0400 Body weight 75.8 kg Melisa L Oberhauser Work Phone: [facility] [place] Work Phone: 11-12-2021 08:59-0400 Body height 165.1 cm Melisa L Oberhauser Work Phone: [facility] [place] Work Phone: 11-12-2021 08:59-0400 Body mass index (BMI) [Ratio] 27.96 kg/m2 Melisa L Oberhauser Work Phone: [facility] [place] Work Phone: 11-12-2021 08:59-0400 Body surface area Derived from formula 1.84 m2 Melisa L Oberhauser Work Phone: [facility] [place] Work Phone: 11-12-2021 08:59-0400 Body temperature 97.88 [degF] Melisa L Oberhauser Work Phone: [facility] [place] Work Phone: 11-12-2021 08:59-0400 Body weight 76.2 kg Melisa L Oberhauser Work Phone: [facility] [place] Work Phone: 11-12-2021 08:59-0400 Diastolic blood pressure 90 mm[Hg] Melisa L Oberhauser Work Phone: [facility] [place] Work Phone: 11-12-2021 08:59-0400 Heart rate 70 /min Melisa L Oberhauser Work Phone: [facility] [place] Work Phone: 11-12-2021 08:59-0400 SaO2% (BldA) [Mass fraction] 98 % Melisa L Oberhauser Work Phone: [facility] [place] Work Phone: 11-12-2021 08:59-0400 Systolic blood pressure 146 mm[Hg] Melisa L Oberhauser Work Phone: [facility] [place] Work Phone: 11-12-2021 08:59-0400 0 1 Melisa L Oberhauser Work Phone: [facility] [place] Work Phone: Comment on above: [employer] 10-22-2021 09:12-0400 Body height 165.1 cm Melisa L Oberhauser Work Phone: [facility] [place] Work Phone: 10-22-2021 09:12-0400 Body mass index (BMI) [Ratio] 27.96 kg/m2 Melisa L Oberhauser Work Phone: [facility] [place] Work Phone: 10-22-2021 09:12-0400 Body surface area Derived from formula 1.84 m2 Melisa Teixeira Oberhauser Work Phone: [facility] [place] Work Phone: 10-22-2021 09:12-0400 Body temperature 98.24 [degF] Melisa Lluvia Oberhauser Work Phone: [facility] [place] Work Phone: 10-22-2021 09:12-0400 Body weight 76.2 kg Melisa L Oberhauser Work Phone: [facility] [place] Work Phone: 10-22-2021 09:12-0400 Diastolic blood pressure 105 mm[Hg] Melisa L Oberhauser Work Phone: [facility] [place] Work Phone: 10-22-2021 09:12-0400 Heart rate 70 /min Melisa L Oberhauser Work Phone: [facility] [place] Work Phone: 10-22-2021 09:12-0400 Respiratory rate 16 /min Melisa L Oberhauser Work Phone: [facility] [place] Work Phone: 10-22-2021 09:12-0400 SaO2% (BldA) [Mass fraction] 99 % Melisa L Oberhauser Work Phone: [facility] [place] Work Phone: 10-22-2021 09:12-0400 Systolic blood pressure 178 mm[Hg] Melisa L Oberhauser Work Phone: [facility] [place] Work Phone: 10-22-2021 09:12-0400 0 1 Melisa L Oberhauser Work Phone: [facility] [place] Work Phone: Comment on above: [employer] 10-09-2021 12:07-0500 Body height 167.59 cm Melisa L Oberhauser Work Phone: [facility] Work Phone: 10-09-2021 12:07-0500 Body mass index (BMI) [Ratio] 27.13 kg/m2 Melisa L Oberhauser Work Phone: [facility] Work Phone: 10-09-2021 12:07-0500 Body surface area Derived from formula 1.86 m2 Melisa L Oberhauser Work Phone: [facility] Work Phone: 10-09-2021 12:07-0500 Body temperature 97.5 [degF] Melisa L Oberhauser Work Phone: [facility] Work Phone: 10-09-2021 12:07-0500 Body weight 76.2 kg Melisa L Oberhauser Work Phone: [facility] Work Phone: 10-09-2021 12:07-0500 Diastolic blood pressure 91 mm[Hg] Melisa L Oberhauser Work Phone: [facility] Work Phone: 10-09-2021 12:07-0500 Heart rate 69 /min Melisa L Oberhauser Work Phone: [facility] Work Phone: 10-09-2021 12:07-0500 Systolic blood pressure 150 mm[Hg] Melisa L Oberhauser Work Phone: [facility] Work Phone: 09-24-2021 11:41-0500 Diastolic blood pressure 100 mm[Hg] Melisa L Oberhauser Work Phone: RM-Ysiutdu-Wsllfiu [facility] [place] Work Phone: 09-24-2021 11:41-0500 Systolic blood pressure 134 mm[Hg] Melisa L Oberhauser Work Phone: ID-Fmibvok-Liocded e [facility] [place] Work Phone: 09-24-2021 11:37-0500 Body height 167.6 cm Melisa L Oberhauser Work Phone: DS-Hucanqg-Iogfhtq e [facility] [place] Work Phone: 09-24-2021 11:37-0500 Body mass index (BMI) [Ratio] 27.09 kg/m2 Melisa L Oberhauser Work Phone: CE-Zmnimoi-Sdahwfk e [facility] [place] Work Phone: 09-24-2021 11:37-0500 Body surface area Derived from formula 1.86 m2 Melisa L Oberhauser Work Phone: XY-Glljyvs-Kgtlzbo e [facility] [place] Work Phone: 09-24-2021 11:37-0500 Body temperature 36.3 [degF] Melisa L Oberhauser Work Phone: VW-Crjohyg-Cnnuvcv e [facility] [place] Work Phone: 09-24-2021 11:37-0500 Body weight 76.1 kg Melisa L Oberhauser Work Phone: HT-Pzbmdyf-Wcwwnmx e [facility] [place] Work Phone: 09-24-2021 11:37-0500 Diastolic blood pressure 99 mm[Hg] Melisa L Oberhauser Work Phone: KT-Ibpsigw-Obvfmry e [facility] [place] Work Phone: 09-24-2021 11:37-0500 Heart rate 80 /min Melisa L Oberhauser Work Phone: GD-Rdbkblt-Aptzete e [facility] [place] Work Phone: 09-24-2021 11:37-0500 Respiratory rate 16 /min Melisa L Oberhauser Work Phone: DB-Syqssrn-Prsfqjl e [facility] [place] Work Phone: 09-24-2021 11:37-0500 SaO2% (BldA) [Mass fraction] 99 % Melisa L Oberhauser Work Phone: PN-Nrpvhqj-Puxxyqs e [facility] [place] Work Phone: 09-24-2021 11:37-0500 Systolic blood pressure 158 mm[Hg] Melisa L Oberhauser Work Phone: MD-Czkcjbb-Wyaqggr e [facility] [place] Work Phone: 09-20-2021 14:11-0500 Body height 167.64 cm Melisa L Oberhauser Work Phone: WV-Iopyeag-Tbxvbni e [facility] [place] Work Phone: 09-20-2021 14:11-0500 Body mass index (BMI) [Ratio] 27.12 kg/m2 Melisa L Oberhauser Work Phone: GI-Gbbepaz-Ipbeukp e [facility] [place] Work Phone: 09-20-2021 14:11-0500 Body surface area Derived from formula 1.86 m2 Melisa L Oberhauser Work Phone: LS-Ctlroyk-Gzzmalf e [facility] [place] Work Phone: 09-20-2021 14:11-0500 Body weight 76.2 kg Melisa L Oberhauser Work Phone: AP-Hldfshx-Sfeigby e [facility] [place] Work Phone: 09-20-2021 14:11-0500 Diastolic blood pressure 98 mm[Hg] Melisa L Oberhauser Work Phone: OF-Bsyngvs-Wctnmte e [facility] [place] Work Phone: 09-20-2021 14:11-0500 Heart rate 80 /min Melisa L Oberhauser Work Phone: CW-Beovloa-Jolswtu e [facility] [place] Work Phone: 09-20-2021 14:11-0500 Systolic blood pressure 150 mm[Hg] Melisa L Oberhauser Work Phone: JD-Qotdntn-Bjqxfur e [facility] [place] Work Phone: 09-04-2021 08:09-0500 Body height 167.64 cm Melisa L Oberhauser Work Phone: [facility] Work Phone: 09-04-2021 08:09-0500 Body mass index (BMI) [Ratio] 27.16 kg/m2 Melisa L Oberhauser Work Phone: [facility] Work Phone: 09-04-2021 08:09-0500 Body surface area Derived from formula 1.86 m2 Melisa Nunezerrejier Work Phone: [facility] Work Phone: 09-04-2021 08:09-0500 Body temperature 97.5 [degF] Melisa Nunezerrejier Work Phone: [facility] Work Phone: 09-04-2021 08:09-0500 Body weight 76.34 kg Melisa Nunezerrejier Work Phone: [facility] Work Phone: 09-04-2021 08:09-0500 Diastolic blood pressure 87 mm[Hg] Melisa Nunezerrejier Work Phone: [facility] Work Phone: 09-04-2021 08:09-0500 Heart rate 76 /min Melisa Nunezerrejier Work Phone: [facility] Work Phone: 09-04-2021 08:09-0500 SaO2% (BldA) [Mass fraction] 99 % Melisa Nunezerrejier Work Phone: [facility] Work Phone: 09-04-2021 08:09-0500 Systolic blood pressure 141 mm[Hg] Melisa Teixeira Oberhauser Work Phone: [facility] Work Phone: 03-14-2021 15:45-0400 Body height 167.64 cm Melisa Teixeira Oberhauser Work Phone: [facility] Work Phone: 03-14-2021 15:45-0400 Body mass index (BMI) [Ratio] 28.41 kg/m2 Melisa L Oberhauser Work Phone: [facility] Work Phone: 03-14-2021 15:45-0400 Body surface area Derived from formula 1.89 m2 Melisa L Oberhauser Work Phone: [facility] Work Phone: 03-14-2021 15:45-0400 Body temperature 97.8 [degF] Melisa L Oberhauser Work Phone: [facility] Work Phone: 03-14-2021 15:45-0400 Body weight 79.83 kg Melisa L Oberrejier Work Phone: [facility] Work Phone: 03-14-2021 15:45-0400 Diastolic blood pressure 88 mm[Hg] Melisa L Oberhauser Work Phone: [facility] Work Phone: 03-14-2021 15:45-0400 Heart rate 67 /min Melisa Nunezerrejier Work Phone: [facility] Work Phone: 03-14-2021 15:45-0400 Systolic blood pressure 133 mm[Hg] Melisa L Oberhauser Work Phone: [facility] Work Phone: 02-05-2021 10:33-0400 Body temperature 97.5 [degF] Melisa L Oberhauser Work Phone: [facility] Work Phone: 02-05-2021 10:33-0400 Body weight 83.92 kg Melisa L Oberhauser Work Phone: [facility] Work Phone: 02-05-2021 10:33-0400 Diastolic blood pressure 82 mm[Hg] Melisa L Oberhauser Work Phone: [facility] Work Phone: 02-05-2021 10:33-0400 Heart rate 81 /min Melisa Staton Work Phone: [facility] Work Phone: 02-05-2021 10:33-0400 SaO2% (BldA) [Mass fraction] 97 % Melisa Staton Work Phone: [facility] Work Phone: 02-05-2021 10:33-0400 Systolic blood pressure 130 mm[Hg] Melisa Staton Work Phone: [facility] Work Phone: Encounters Encounter Date Encounter Type Care Provider Facility Start: 06-12-2025 ambulatory [facility] Facility :[facility] Start: 06-08-2025 ambulatory Darlin Jesika Facility :[facility] Start: 01-06-2025 End: 01-06-2025 Patient encounter procedure Brodie TORRES [facility] Work Phone: Start: 01-06-2025 End: 01-06-2025 ambulatory Brodie TORRES [facility] Work Phone: Start: 08-16-2024 ambulatory Health Risk Assessment Facility:[facility] Start: 05-01-2023 ambulatory MELISA STATON [facility] Start: 11-28-2022 ambulatory DPM WIL MCNAIR Facility:[id number] Start: 09-11-2022 Chart Update Melisa Gómez user Work Phone: [facility] Work Phone: Start: 08-05-2022 Office outpatient visit 25 minutes Melisa Staton Work Phone: [facility] Work Phone: Start: 08-05-[address] Melisa Staton Facility:[id number] Start: 07-30-[address] Melisa Staton Facility:[id number] Start: 07-23-2022 AUDIT Melisa Nunezerkrystal user Work Phone: [facility] Work Phone: Start: 07-16-2022 AUDIT Melisa Nunezerkrystal user Work Phone: [facility] Work Phone: Start: 06-18-2022 AUDIT Melisa Nunezerkrystal user Work Phone: [facility] Work Phone: Start: 04-23-2022 Office outpatient visit 25 minutes Melisa Staton Work Phone: [facility] Work Phone: Start: 04-23-[address] Melisa Staton Facility:[id number] Start: 02-04-[address] Melisa Staton Facility:[id number] Start: 02-04-2022 Office outpatient visit 25 minutes Melisa Staton Work Phone: [facility] Work Phone: Start: 12-21-2021 AUDIT Melisa Lisakrystal user Work Phone: [facility] Work Phone: Start: 11-12-2021 Postop follow up vis it related to original px Melisa Staton Work Phone: [facility] [place] Work Phone: Start: 11-12-2021 POV, Provider: Zoe Ray, Status: Pen, Time: 9:00 AM Melisa Staton Work Phone: [facility] Work Phone: Start: 11-12-[address] ZOE ALBERT Jr Facility:[id number] Start: 11-11-2021 Chart Update Melisa Gómez user Work Phone: [facility] Work Phone: Start: 10-29-2021 Image Encounter Melisa Gómez user Work Phone: zz DO NOT USE - [employer] Only Start: 10-22-2021 Office outpatient ne w 60 minutes Melisa Staton Work Phone: [facility] [place] Work Phone: Start: 10-22-[address] [id number] Start: 10-11-2021 Telephone encounter [facility]isa jackson [facility] Work Phone: Start: 10-09-2021 Office outpatient visit 25 minutes Melisa Staton Work Phone: [facility] Work Phone: Start: 10-09-[address] Melisa Staton Facility:[id number] Start: 09-26-2021 Chart Update Melisa Gómez user Work Phone: [facility] Work Phone: Start: 09-24-2021 Office outpatient ne w 45 minutes Melisa Staton Work Phone: BV-Xwjxvcd-Lkwztfdt [facility] [place] Work Phone: Start: 09-24-[address] Melisa Staton Facility:[facility] Start: 09-20-[address] Melisa Staton Facility:[id number] Start: 09-18-2021 Result Review Melisa Gómez user Work Phone: [facility] Work Phone: Start: 09-13-2021 Chart Update Melisa Gómez user Work Phone: [facility] Work Phone: Start: 09-04-2021 Office outpatient visit 25 minutes Melisa Lisamignon Work Phone: [facility] Work Phone: Start: 09-04-[address] Melisa Staton Facility:[id number] Start: 08-12-2021 Office outpatient visit 15 minutes Melisa Staton Work Phone: [facility] Work Phone: Start: 08-12-[address] Melisa Staton Facility:[id number] Start: 07-29-2021 AUDIT Melisa Nunezflor user Work Phone: [facility] Work Phone: Start: 05-30-2021 AUDIT Melisa Teixeira Dalia user Work Phone: [facility] Work Phone: Start: 03-18-2021 Patient encounter procedure Melisa Cmian Work Phone: [facility] Work Phone: Start: 02-12-2021 Chart Update Melisa Nunezflor user Work Phone: [facility] Work Phone: Start: 02-05-2021 Current tobacco non-user cad cap copd pv dm Melisa Lisamignon Work Phone: [facility] Work Phone: Start: 03-25-2017 End: 03-26-2017 Ambulatory CRYSTAL PAP Facility:[facility] Start: 03-16-2017 End: 03-17-2017 Ambulatory CRYSTAL PAP Facility:[facility] Procedures Date Procedure Procedure Detail Performing Clinician Start: 05-01-2023 CBC W Auto Different ial panel - Blood MELISA STATON Start: 09-29-2023 Ferritin [Mass/volum e] in Serum or Plasma MELISA OBERHAUSER Start: 05-01-2023 IRON AND TIBC MELISA OBE RHAUSER Start: 12-08-2019 Blood count complete auto&auto difrntl wbc Melisa Oberhauser Biopsy of breast Melisa Oberh auser Comment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
== END | disposition home or self-care (01) ==
LOC: LABSPEC 12:06
PROVIDERS: PCP Family Medicine; Referring Provider Internal Medicine Medical Oncology; Visit Provider Internal Medicine Medical Oncology
DX: D50.8 Other iron deficiency anemias (principal)
CPT/HCPCS: 82274